=== PATIENT | female | born 1965 | race Caucasian/White ===

== ENCOUNTER → 2017-03-13 | Outpatient (CLI) | payer OTHER ==
[~2017-03-13] MED LIST: OMNIPAQUE 350 MG/ML, 100ML BOTTLE ONE
== END | disposition home or self-care (01) ==
LOC: CFH 11:40
PROVIDERS: ATTEND Specialist
DX: K76.89 Other specified diseases of liver (principal); M51.36 Other intervertebral disc degeneration, lumbar region; M47.896 Other spondylosis, lumbar region; D12.2 Benign neoplasm of ascending colon
CPT/HCPCS: 71260; 74177; Q9967

== ENCOUNTER 2017-03-19 07:00 | Inpatient (IN) | payer OTHER ==
[~2017-03-19] VITALS: Ht 165.1 cm; Wt 74.4 kg
[2017-03-25] MEDS ORDERED: GABA100C PO (11:15)
[2017-03-25] MEDS ORDERED: METR500T8 PO (11:15)
[2017-03-25] MEDS ORDERED: ESCI10TA10 PO (11:15)
[2017-03-25] MEDS ORDERED: IBUP-1223 PO (11:15)
[2017-03-25] MEDS ORDERED: NEOM500T PO (11:15)
[2017-03-25] MEDS ORDERED: LISI2.5T PO (11:15)
[2017-03-25] MEDS ORDERED: ZONI50CA2 PO (11:15)
[2017-03-25] MEDS ORDERED: ATEN25TA PO (11:15)
[2017-03-25] MEDS ORDERED: ESTR0.3T PO (11:15)
[2017-03-25] MEDS ORDERED: HYDR12.58 PO (11:15)
[2017-03-26] MEDS ORDERED: MIDAZOLAM 1 MG/ML, 2ML ONE (06:33)
[2017-03-26] MEDS ORDERED: FENTANYL PF 100 MCG/2ML ONE ×4 (06:34→10:01)
[2017-03-26] MEDS ORDERED: EPINEPHRINE 1 MG/ML, 1ML ONE (06:49)
[2017-03-26] MEDS ORDERED: BUPIVACAINE/PF 0.5% ONE (06:49)
[2017-03-26] MEDS ORDERED: LIDOCAINE 1%, 2ML ONE (07:06)
[2017-03-26 07:08] VITALS: BP 142/83
[2017-03-26] MEDS ORDERED: CEFOTETAN 2 GM ONE (07:34)
[2017-03-26] MEDS ORDERED: PROPOFOL 10 MG/ML, 20ML ONE (07:34)
[2017-03-26] MEDS ORDERED: GLYCOPYRROLATE 0.2MG/1ML, 5ML ONE (07:34)
[2017-03-26] MEDS ORDERED: NEOSTIGMINE 1 MG/ML, 10ML ONE (07:34)
[2017-03-26] MEDS ORDERED: ONDANSETRON 2MG/ML, 2ML ONE ×2 (07:34)
[2017-03-26] MEDS ORDERED: DEXAMETHASONE 4 MG/ML, 1ML ONE (07:34)
[2017-03-26] MEDS ORDERED: BUPIVACAINE/PF-EPI 0.5% 1:200K IM ONE (08:16)
[2017-03-26] MEDS ORDERED: ACETAMINOPHEN 325 MG TABLET PO PRN ×2 (10:00→12:30)
[2017-03-26] MEDS ORDERED: PROMETHAZINE 25 MG/ML, 1ML IV PRN (10:00)
[2017-03-26] MEDS ORDERED: MIDAZOLAM 1 MG/ML, 2ML IV PRN (10:00)
[2017-03-26] MEDS ORDERED: OXYcodone 5 MG/5 ML ORAL.SOL UDC PO PRN (10:00)
[2017-03-26] MEDS ORDERED: MEPERIDINE/PF 25MG/0.5ML IVPush PRN (10:00)
[2017-03-26] MEDS ORDERED: LABETALOL 5MG/ML, 20ML IV PRN (10:00)
[2017-03-26] MEDS ORDERED: ONDANSETRON 2MG/ML, 2ML IVPush PRN (10:00)
[2017-03-26] MEDS ORDERED: hydrALAzine 20 MG/ML, 1ML IV PRN ×2 (10:00→12:30)
[2017-03-26] MEDS: FENTANYL PF 100 MCG/2ML IV PRN ×2 (10:04→10:20)
[2017-03-26] MEDS ORDERED: HYDROmorphone 1 MG/ML, 1ML ONE (10:26)
[2017-03-26] MEDS: HYDROmorphone 1 MG/ML, 1ML IV PRN ×2 (10:40→10:52)
[2017-03-26] MEDS: KETOROLAC 30 MG/1 ML IVPush PRN (11:37)
[2017-03-26] MEDS ORDERED: MORPHINE SULFATE 4 MG/ML, 1ML IVPush PRN (12:00)
[2017-03-26] MEDS ORDERED: ENALAPRILAT 1.25 MG/ML, 2ML IV PRN (12:30)
[2017-03-26] MEDS ORDERED: ONDANSETRON 2MG/ML, 2ML IV PRN (12:30)
[2017-03-26] MEDS ORDERED: morphine SULFATE 10 MG/ML, 1ML IV PRN (12:30)
[2017-03-26] MEDS ORDERED: LACTATED RINGERS 500 ML IV PRN ×2 (12:30→13:00)
[2017-03-26] MEDS ORDERED: KETOROLAC 30 MG/1 ML IV PRN (12:30)
[2017-03-26] MEDS ORDERED: ACETAMINOPHEN 650 MG SUPP PR PRN (12:30)
[2017-03-26] MEDS: LACTATED RINGERS 1,000 ML IV SCH ×2 (13:00→23:00)
[2017-03-26] MEDS: HYDROcodone/APAP 7.5-325MG/15ML UDC PO PRN ×2 (14:01→22:07)
[2017-03-26] MEDS ORDERED: DIPHENHYDRAMINE 25 MG CAPSULE PO PRN (15:00)
[2017-03-26] MEDS ORDERED: DIPHENHYDRAMINE 50 MG/ML, 1ML IV PRN (15:00)
[2017-03-26] MEDS: D5%-LACTATED RINGERS 1,000 ML IV SCH (15:58)
[2017-03-26 18:56] VITALS: BP 117/70
[2017-03-26] MEDS: GABAPENTIN 100 MG CAPSULE PO SCH (20:23)
[2017-03-26] MEDS: CEFOTETAN PMX 2GM/50ML 50 ML IVPB SCH (20:39)
[2017-03-26] MEDS: SODIUM CHLORIDE FLUSH 10ML SYR IVF SCH (20:42)
[2017-03-26] MEDS ORDERED: SODIUM CHLORIDE FLUSH 10ML SYR IVF SCH (21:00)
[2017-03-26] MEDS: DIPHENHYDRAMINE 25 MG CAPSULE PO PRN (22:07)
[2017-03-26 23:50] VITALS: BP 115/63
[2017-03-27] MEDS: KETOROLAC 30 MG/1 ML IVPush PRN (00:02)
[2017-03-27] MEDS: D5%-LACTATED RINGERS 1,000 ML IV SCH (02:12)
[2017-03-27 03:48] VITALS: BP 116/66
[2017-03-27] MEDS: HYDROcodone/APAP 7.5-325MG/15ML UDC PO PRN ×5 (03:57→21:28)
[2017-03-27 05:40] VITALS: BP 115/68
[2017-03-27] MEDS: ATENOLOL 25 MG TABLET PO SCH (05:43)
[2017-03-27 06:00] LABS: HEMATOCRIT 35.6 % (34.6-47.8); HEMOGLOBIN 12.1 g/dL (11.7-16.4); WHITE BLOOD COUNT 10.8 x10^3/uL (3.4-10)
[2017-03-27 06:09] LABS: BLOOD UREA NITROGEN 10 mg/dL (7-18)
[2017-03-27 07:50] VITALS: BP 108/66
[2017-03-27] MEDS: CITALOPRAM 20 MG TABLET PO SCH (08:09)
[2017-03-27] MEDS: CEFOTETAN PMX 2GM/50ML 50 ML IVPB SCH (08:10)
[2017-03-27] MEDS: ZONISAMIDE 50 MG CAPSULE PO SCH (08:10)
[2017-03-27] MEDS: HYDROCHLOROTHIAZIDE 12.5 MG CAPSULE PO SCH (08:10)
[2017-03-27] MEDS: LISINOPRIL 5 MG TABLET PO SCH (08:10)
[2017-03-27] MEDS: ENOXAPARIN 40 MG/0.4 ML SQ SCH (08:10)
[2017-03-27] MEDS: LACTATED RINGERS 1,000 ML IV SCH ×2 (09:00→19:00)
[2017-03-27] MEDS ORDERED: ENOXAPARIN 40 MG/0.4 ML SQ SCH (09:00)
[2017-03-27] MEDS: SODIUM CHLORIDE FLUSH 10ML SYR IVF SCH ×2 (09:00→21:30)
[2017-03-27 13:18] VITALS: BP 123/77
[2017-03-27 18:33] VITALS: BP 134/77
[2017-03-27] MEDS: GABAPENTIN 100 MG CAPSULE PO SCH (21:28)
[2017-03-27] MEDS: DIPHENHYDRAMINE 25 MG CAPSULE PO PRN (21:28)
[2017-03-28 02:30] VITALS: BP 124/71
[2017-03-28] MEDS: HYDROcodone/APAP 7.5-325MG/15ML UDC PO PRN ×2 (02:52→10:13)
[2017-03-28] MEDS: LACTATED RINGERS 1,000 ML IV SCH (05:00)
[2017-03-28 06:06] VITALS: BP 112/70
[2017-03-28] MEDS: ATENOLOL 25 MG TABLET PO SCH (06:09)
[2017-03-28 06:29] LABS: BLOOD UREA NITROGEN 11 mg/dL (7-18)
[2017-03-28] MEDS: HYDROCHLOROTHIAZIDE 12.5 MG CAPSULE PO SCH (08:11)
[2017-03-28] MEDS: SODIUM CHLORIDE FLUSH 10ML SYR IVF SCH (08:11)
[2017-03-28] MEDS: LISINOPRIL 5 MG TABLET PO SCH (08:12)
[2017-03-28] MEDS: ZONISAMIDE 50 MG CAPSULE PO SCH (08:12)
[2017-03-28] MEDS: ENOXAPARIN 40 MG/0.4 ML SQ SCH (08:14)
[2017-03-28] MEDS: CITALOPRAM 20 MG TABLET PO SCH (09:00)
[2017-03-28] MEDS ORDERED: ONDA4TAB10 PO (10:13)
[2017-03-28] MEDS ORDERED: HYDR-3240 PO (10:16)
[2017-03-28] MEDS ORDERED: PNEUMOCOCCAL 23 VACCINE IM-VACC ONE (11:30)
== END 2017-03-28 12:30 | disposition home or self-care (01) | DRG 331 ==
LOC: ORIP 03-26 06:27 → 4NOR 03-26 14:20
PROVIDERS: ADMIT Surgery; ATTEND Surgery
PROC: 0T9880Z Drainage of Bilateral Ureters with Drainage Device, Via Natural or Artificial Opening Endoscopic (ICD-10-PCS; principal; 2017-03-26 07:30)
PROC: 0DBF4ZZ Excision of Right Large Intestine, Percutaneous Endoscopic Approach (ICD-10-PCS; 2017-03-26 07:30)
DX: K63.9 Disease of intestine, unspecified (principal)
CPT/HCPCS: 36415; 74000; 76000; 80048; 85025; 86850; 86900; 88309; 90732; J0171; J1100; J1170; J1650; J1885; J2250; J2405; J2704; J2710; J3010; J3490; C1758; C1769; J7121; Q0163; S0074

== ENCOUNTER → 2018-05-17 | Outpatient (CLI) | payer OTHER ==
[~2018-05-17] MED LIST changes: +ATEN25TA PO; +ESCI10TA10 PO; +ESTR0.3T PO; +GABA100C PO; +HYDR-3240 PO; +HYDR12.58 PO; +IBUP-1223 PO; +LISI2.5T PO; +METR500T8 PO; +NEOM500T PO; -OMNIPAQUE 350 MG/ML, 100ML BOTTLE ONE; +ONDA4TAB10 PO; +ZONI50CA2 PO
== END | disposition home or self-care (01) ==
LOC: CFH 08:12
PROVIDERS: ATTEND Family Medicine
DX: Z12.31 Encounter for screening mammogram for malignant neoplasm of breast (principal); M81.0 Age-related osteoporosis without current pathological fracture; N95.8 Other specified menopausal and perimenopausal disorders
CPT/HCPCS: 77080; 77067

== ENCOUNTER → 2019-08-09 | Outpatient (CLI) | payer OTHER ==
[~2019-08-09] MED LIST changes: -HYDR12.58 PO; +HYDROCHLOROTH12.5 MG PO; +METR-90 PO; -METR500T8 PO; +ZONI50CA10 PO; -ZONI50CA2 PO
== END | disposition home or self-care (01) ==
LOC: CFH 10:30
PROVIDERS: ATTEND Family Medicine
DX: Z12.31 Encounter for screening mammogram for malignant neoplasm of breast (principal); N64.89 Other specified disorders of breast
CPT/HCPCS: 77063; 77067

== ENCOUNTER 2019-12-13 11:05 | Outpatient (CLI) | payer OTHER ==
[2019-12-13] MEDS ORDERED: ESTR0.6246 PO (11:48)
[2019-12-13 12:11] LABS: BASOPHILS # (AUTO) 0.04 x10^3/uL (0-0.1); BASOPHILS % (AUTO) 1 % (0-1); EOSINOPHILS # (AUTO) 0.09 x10^3/uL (0-0.4); EOSINOPHILS % (AUTO) 2 % (1-7); LYMPHOCYTES # (AUTO) 1.74 x10^3/uL (1-3.4); LYMPHOCYTES % (AUTO) 28 % (22-44); MD NO; MEAN CORPUSCULAR HEMOGLOBIN 32.1 pg (27.0-34.8); MEAN CORPUSCULAR HGB CONC 34.6 g/dL (32.4-35.8); MEAN PLATELET VOLUME 8.1 fL (7.4-10.4); MONOCYTES # (AUTO) 0.53 x10^3/uL (0.2-0.8); MONOCYTES % (AUTO) 9 % (2-9); NEUTROPHILS # (AUTO) 3.76 x10^3/uL (1.8-6.8); NEUTROPHILS % (AUTO) 61 % (42-75); PLATELET COUNT 207 x10^3/uL (130-400); RED BLOOD COUNT 4.59 x10^6/uL (3.82-5.3); RED CELL DISTRIBUTION WIDTH 13.4 % (9.6-15.2)
[2019-12-13 12:17] LABS: INTERNATIONAL NORMALIZED RATIO 0.93 (0.93-1.1); PROTHROMBIN TIME 9.9 Seconds (9.6-11.5)
[2019-12-13 12:19] LABS: ALANINE AMINOTRANSFERASE 25 U/L (12-78); ALBUMIN 3.7 g/dL (3.4-5.0); ANION GAP 5 mmol/L (5-15); CALCIUM 8.9 mg/dL (8.5-10.1); CHLORIDE 108 mmol/L (98-107)
[2019-12-13 12:20] LABS: MICROSCOPIC NOT IND
[2019-12-13 12:22] LABS: ALKALINE PHOSPHATASE 92 U/L (45-117); BILIRUBIN,TOTAL 0.4 mg/dL (0.2-1.0); CREATININE 0.94 mg/dL (0.55-1.02); TOTAL PROTEIN 7.1 g/dL (6.4-8.2)
== END 2019-12-13 23:59 | disposition home or self-care (01) ==
LOC: STAR 11:05
PROVIDERS: ATTEND Neurological Surgery
DX: Z01.818 Encounter for other preprocedural examination (principal); M47.26 Other spondylosis with radiculopathy, lumbar region
CPT/HCPCS: 36415; 71046; 80053; 81003; 85025; 85610; 85730; 93005

== ENCOUNTER 2019-12-22 08:11 | Day surgery (SDC) | payer OTHER ==
[~2019-12-22] VITALS: Ht 165.1 cm; Wt 76.5 kg
[~2019-12-22 08:11] MED LIST changes: +BACITRACIN 50,000 UNIT ONE; +BUPIVACAINE/PF-EPI 0.25% 1:200K ONE; +BUPIVACAINE/PF-EPI 0.5% 1:200K ONE; +ESTR0.6246 PO; +VANCOMYCIN 1,000 MG ONE; +methylPREDNISolone SOD SUCC 125 MG/2 ML ONE
[2019-12-22 08:49] VITALS: BP 134/82
[2019-12-22] MEDS ORDERED: LACTATED RINGERS 1,000 ML IV SCH (08:53)
[2019-12-22] MEDS ORDERED: CHLORHEXIDINE 15 ML UDC ONE (08:56)
[2019-12-22] MEDS ORDERED: CHLORHEXIDINE 15 ML UDC MM ONE (09:00)
[2019-12-22] MEDS ORDERED: MIDAZOLAM 1 MG/ML, 2ML ONE (10:21)
[2019-12-22] MEDS ORDERED: FENTANYL PF 250 MCG/5ML ONE (10:21)
[2019-12-22] MEDS ORDERED: PROPOFOL 100 ML ONE (10:45)
[2019-12-22] MEDS ORDERED: OxyconTIN ER 20 MG TAB.ER PO ONE (11:00)
[2019-12-22] MEDS ORDERED: GABAPENTIN 300 MG CAPSULE PO ONE (11:00)
[2019-12-22] MEDS ORDERED: FAMOTIDINE 20 MG TABLET PO ONE (11:00)
[2019-12-22] MEDS ORDERED: CEFAZOLIN 1,000 MG ONE ×2 (11:12)
[2019-12-22] MEDS ORDERED: PROPOFOL 10 MG/ML, 20ML ONE (11:14)
[2019-12-22] MEDS ORDERED: ROCURONIUM 10MG/ML,5ML ONE (11:36)
[2019-12-22] MEDS ORDERED: ONDANSETRON 2MG/ML, 2ML ONE ×3 (11:58→11:59)
[2019-12-22] MEDS ORDERED: DEXAMETHASONE 4 MG/ML, 1ML ONE ×2 (11:58→11:59)
[2019-12-22] MEDS ORDERED: MEPERIDINE/PF 25MG/0.5ML IVPush PRN (12:00)
[2019-12-22] MEDS ORDERED: HYDROmorphone 1 MG/ML, 1ML INJ IVPush PRN (12:00)
[2019-12-22] MEDS ORDERED: OXYcodone 5 MG/5 ML ORAL.SOL UDC PO PRN (12:00)
[2019-12-22] MEDS ORDERED: hydrALAzine 20 MG/ML, 1ML IV PRN (12:00)
[2019-12-22] MEDS ORDERED: ONDANSETRON 2MG/ML, 2ML IVPush PRN (12:00)
[2019-12-22] MEDS ORDERED: FENTANYL PF 100 MCG/2ML IV PRN (12:00)
[2019-12-22] MEDS ORDERED: DIAZEPAM 5 MG/ML, 2ML IVPush PRN (12:00)
[2019-12-22] MEDS ORDERED: PROMETHAZINE 25 MG/ML, 1ML IVPush PRN (12:00)
[2019-12-22] MEDS ORDERED: LABETALOL 5MG/ML, 20ML IV PRN (12:00)
[2019-12-22] MEDS ORDERED: OXYcodone 5 MG/5 ML ORAL.SOL UDC ONE (13:03)
[2019-12-22] MEDS ORDERED: HYDROmorphone 1 MG/ML, 1ML INJ ONE (13:03)
[2019-12-22] MEDS ORDERED: FENTANYL PF 100 MCG/2ML ONE (13:03)
== END 2019-12-22 17:00 | disposition home or self-care (01) ==
LOC: OUT 08:11
PROVIDERS: ATTEND Neurological Surgery
DX: M43.06 Spondylolysis, lumbar region (principal); Z11.59 Encounter for screening for other viral diseases; M48.061 Spinal stenosis, lumbar region without neurogenic claudication; M54.16 Radiculopathy, lumbar region; F32.9 Major depressive disorder, single episode, unspecified; G43.909 Migraine, unspecified, not intractable, without status migrainosus; I10 Essential (primary) hypertension; Z79.891 Long term (current) use of opiate analgesic; Z79.899 Other long term (current) drug therapy; Z88.2 Allergy status to sulfonamides; Z91.040 Latex allergy status; Z90.49 Acquired absence of other specified parts of digestive tract; Z90.710 Acquired absence of both cervix and uterus; Z98.1 Arthrodesis status; Z98.890 Other specified postprocedural states; Z83.3 Family history of diabetes mellitus; Z82.49 Family history of ischemic heart disease and other diseases of the circulatory system; Z84.1 Family history of disorders of kidney and ureter
CPT/HCPCS: 22867; 22868; 72100; C1776; C1889; J0690; J1100; J1170; J2250; J2405; J2704; J3010; J3370; J7120; U0001; J2930

== ENCOUNTER 2020-08-30 07:45 | Outpatient (CLI) | payer OTHER ==
[~2020-08-30 07:45] MED LIST changes: -BACITRACIN 50,000 UNIT ONE; -BUPIVACAINE/PF-EPI 0.25% 1:200K ONE; -BUPIVACAINE/PF-EPI 0.5% 1:200K ONE; +HYDR-1067 PO; -HYDR-3240 PO; -VANCOMYCIN 1,000 MG ONE; -methylPREDNISolone SOD SUCC 125 MG/2 ML ONE
== END 2020-08-30 23:59 | disposition home or self-care (01) ==
LOC: CFH 07:45
PROVIDERS: ATTEND Family Medicine
DX: Z12.31 Encounter for screening mammogram for malignant neoplasm of breast (principal); M85.88 Other specified disorders of bone density and structure, other site; N95.9 Unspecified menopausal and perimenopausal disorder
CPT/HCPCS: 77063; 77067; 77080